=== PATIENT | male | born 1970 | race Caucasian/White ===

== ENCOUNTER 2020-10-20 22:14 | Emergency (ER) | payer OTHER, MEDICARE ==
[~2020-10-20 22:14] MED LIST: ANUCORT-HC25 MG PR; BACLOFEN 10MG T10 MG PO; CYMBALTA20 MG PO; IMITREX100 M1 PO; OMEPRAZOLE40 MG PO
[2020-10-21 01:01] LABS: BILIRUBIN NEGATIVE (NEGATIVE); BLOOD 3+ Ery/uL (NEGATIVE); CLARITY CLEAR (CLEAR); COLOR YELLOW (YELLOW); GLUCOSE (U) NORMAL (NORMAL); LEUKOCYTES NEGATIVE Leu/uL (NEGATIVE); NITRITE NEGATIVE (NEGATIVE); PROTEIN NEGATIVE (NEGATIVE); SPECIFIC GRAVITY 1.025 (1.001-1.030); UROBILINOGEN 0.2 mg/dL (0.2-1.0); pH 5.5 (5.0-9.0)
[2020-10-21 01:07] LABS: BACTERIA TRACE; SQUAMOUS EPITHELIAL CELLS RARE; URINARY RBC TNTC; URINARY WBC RARE
[2020-10-21 01:44] LABS: BASOPHIL 0.3 % (0-2); EOSINOPHIL 1.2 % (0-5); HCT 50.1 % (42.0-52.0); LYMPHOCYTE 13.1 % (15-48); MCHC 33.9 g/dL (32.0-36.0); MCV 88.5 fL (78.0-100.0); MONOCYTE 11.6 % (0-12); MPV 10.1 fL (6.0-9.5); NEUTROPHIL 73.3 % (41-80); NRBC 0; PLT 268 K/uL (150-400); RBC 5.66 M/uL (4.70-6.00); WBC 10.4 K/uL (4.0-10.5)
[2020-10-21 02:17] LABS: ALBUMIN 3.9 g/dL (3.4-5.0); BILIRUBIN - TOTAL 0.4 mg/dL (0.2-1.0); CREATININE 1.29 mg/dL (0.67-1.17); GLOBULIN (CALCULATION) 3.5 g/dL; POTASSIUM 4.3 mmol/L (3.5-5.1); TOTAL PROTEIN 7.4 g/dL (6.4-8.2)
[2020-10-21] MEDS ORDERED: NORCO 5-325 TA1 EACH PO (02:20)
== END 2020-10-21 02:46 | disposition home or self-care (01) ==
LOC: FER 22:14
PROVIDERS: Emergency Medicine
DX: N13.2 Hydronephrosis with renal and ureteral calculous obstruction (principal); Z79.899 Other long term (current) drug therapy
CPT/HCPCS: 36415; 80053; 81001; 85025; J2270; J2405; J7030

== ENCOUNTER 2021-06-04 09:23 | Day surgery (SDCO) | payer OTHER, MEDICARE ==
[~2021-06-04] VITALS: Ht 152.4 cm; Wt 123.4 kg
[~2021-06-04 09:23] MED LIST changes: +NORCO 5-325 TA1 EACH PO
[2021-06-04 10:55] LABS: BASOPHIL 0.3 % (0-2); EOSINOPHIL 1.8 % (0-5); HCT 51.8 % (42.0-52.0); HGB 17.3 g/dl (13.2-18.0); MCH 29.9 pg (25.0-31.0); MCHC 33.4 g/dL (32.0-36.0); MCV 89.6 fL (78.0-100.0); MONOCYTE 12.1 % (0-12); MPV 10.5 fL (6.0-9.5); NEUTROPHIL 67.3 % (41-80); NRBC 0; PLT 270 K/uL (150-400); RBC 5.78 M/uL (4.70-6.00); RDW 12.8 % (11.5-14.0); WBC 8.9 K/uL (4.0-10.5)
[2021-06-04 11:15] LABS: ALBUMIN 3.8 g/dL (3.4-5.0); ALKALINE PHOSHATASE 88 U/L (46-116); ALT 33 U/L (16-63); AST 28 U/L (15-37); BILIRUBIN - TOTAL 0.8 mg/dL (0.2-1.0); BUN 8 mg/dL (7-18); BUN/CREAT RATIO (CALC) 8.4 RATIO; CHLORIDE 104 mmol/L (98-107); CO2 (BICARBONATE) 27 mmol/L (21-32); CREATININE 0.95 mg/dL (0.67-1.17); GLOBULIN (CALCULATION) 3.4 g/dL; GLUCOSE 97 mg/dL (74-106); MAGNESIUM 1.9 mg/dL (1.8-2.4); TOTAL PROTEIN 7.2 g/dL (6.4-8.2)
[2021-06-04 11:30] LABS: PROTHROMBIN TIME 12.6 SECONDS (11.8-13.4); PTT 29.6 SECONDS (24.4-34.7)
[2021-06-04 12:02] LABS: BILIRUBIN NEGATIVE (NEGATIVE); BLOOD NEGATIVE Ery/uL (NEGATIVE); CLARITY CLEAR (CLEAR); COLOR YELLOW (YELLOW); GLUCOSE (U) NORMAL (NORMAL); LEUKOCYTES NEGATIVE Leu/uL (NEGATIVE); NITRITE NEGATIVE (NEGATIVE); PROTEIN NEGATIVE (NEGATIVE); UROBILINOGEN 0.2 mg/dL (0.2-1.0); pH 6.5 (5.0-9.0)
[2021-06-04] MEDS ORDERED: SINGULAIR10 MG PO (14:40)
[2021-06-04] MEDS ORDERED: ALLERGY RELIEF10 MG PO (14:41)
[2021-06-04] MEDS ORDERED: DULOXETINE HCL60 MG PO (14:43)
--- NOTE | 2021-06-04 19:14 | NUR ---
06/04/2021 @ 1836 PATIENT COVENTERED TO NSR. CARDIAC STRIP PRINTED AND PLACED ON MOUNT SHEET. MD ANDRES NOTIFIED. NO ORDERS GIVEN AT THIS TIME.
--- NOTE | 2021-06-04 22:12 | NUR ---
CARDIZEM DRIP STOPPED AT 2210. OK'ED WITH Eboni [employer] DEF[employer] ANALYST. PATIENT CONVERTED TO NSR ON 06/04/2021 AT 1836 AND HAS BEEN NSR ON MONITOR SINCE THIS TIME OF CONVERSION. WILL CONTINUE TO MONITOR HR AND RHYTHM FOR ANY CHANGES.
[2021-06-05] MEDS ORDERED: LOPRESSOR25 MG PO (09:49)
[2021-06-05] MEDS ORDERED: CARDIZEM60 MG PO (09:49)
[2021-06-05] MEDS ORDERED: ASPIRIN EC81 MG PO (09:49)
== END 2021-06-05 11:26 | disposition home or self-care (01) ==
LOC: FER 09:23 → FTCU 13:21
PROVIDERS: Emergency Medicine; ADMIT Allergy & Immunology Allergy
DX: I48.91 Unspecified atrial fibrillation (principal); R07.89 Other chest pain; D75.1 Secondary polycythemia; F17.200 Nicotine dependence, unspecified, uncomplicated; Z82.49 Family history of ischemic heart disease and other diseases of the circulatory system; Z88.8 Allergy status to other drugs, medicaments and biological substances; Z96.643 Presence of artificial hip joint, bilateral; Z72.89 Other problems related to lifestyle; Z20.822 Contact with and (suspected) exposure to COVID-19
CPT/HCPCS: 36415; 71045; 80053; 81003; 82728; 83735; 83880; 84439; 84443; 84484; 85025; 85610; 85730; 93005; G0378; G0480; J1650; U0002

== ENCOUNTER → 2021-11-05 | Day surgery (SDC) | payer OTHER, MEDICARE ==
[~2021-11-05] VITALS: Ht 182.9 cm; Wt 123.4 kg
[~2021-11-05] MED LIST changes: +ALLERGY RELIEF10 MG PO; +ASPIRIN EC81 MG PO; +CARDIZEM60 MG PO; +DULOXETINE HCL60 MG PO; +LOPRESSOR25 MG PO; +LOPRESSOR50 MG PO; +NURTEC ODT75 MG PO; +SINGULAIR10 MG PO
[2021-11-05 09:01] LABS: HCT 47.1 % (42.0-52.0); HGB 15.6 g/dl (13.2-18.0); MCH 29.3 pg (25.0-31.0); MCHC 33.1 g/dL (32.0-36.0); MCV 88.5 fL (78.0-100.0); MPV 9.7 fL (6.0-9.5); RBC 5.32 M/uL (4.70-6.00); RDW 12.8 % (11.5-14.0); WBC 7.5 K/uL (4.0-10.5)
[2021-11-05 09:24] LABS: ALBUMIN 3.3 g/dL (3.4-5.0); BILIRUBIN - TOTAL 0.5 mg/dL (0.2-1.0); BUN/CREAT RATIO (CALC) 12.2 RATIO; CREATININE 0.9 mg/dL (0.67-1.17); POTASSIUM 4.3 mmol/L (3.5-5.1); TOTAL PROTEIN 6.3 g/dL (6.4-8.2)
== END | disposition home or self-care (01) ==
LOC: FAS 07:00
PROVIDERS: Orthopaedic Surgery
DX: G56.03 Carpal tunnel syndrome, bilateral upper limbs (principal)
CPT/HCPCS: 36415; 80053; 93005; J1170; J2250; J2704; J3010; J7120